=== PATIENT | female | born 1955 | race Caucasian/White ===

== ENCOUNTER 2017-10-29 15:04 | Emergency (ER) | payer MEDICAID ==
[~2017-10-29] VITALS: Ht 162.6 cm; Wt 55.9 kg
[~2017-10-29 15:04] MED LIST: FLUO20CA39 PO; HYDR-565 PO
[2017-10-29] MEDS ORDERED: ipratropium/albuterol 3ml nebule NEB ONE (16:00)
[2017-10-29 16:18] LABS: MEAN PLATELET VOLUME 9.2 FL (7.4-10.4); WHITE BLOOD COUNT 7.8 X10'3 (4.5-11.0)
[2017-10-29 16:20] LABS: BASOPHILS % (AUTO) 0.5 % (0-1); EOSINOPHILS % (AUTO) 0.5 % (0-6); HEMATOCRIT 37.1 % (35.0-45.0); HEMOGLOBIN 12.9 g/dl (12.0-16.0); LYMPHOCYTES # (AUTO) 2.1 X10'3 (1.1-4.8); LYMPHOCYTES % (AUTO) 27.4 % (21-51); MEAN CORPUSCULAR HEMOGLOBIN 30.7 PG (27.0-31.0); MEAN CORPUSCULAR HGB CONC 34.8 % (33.0-36.5); MONOCYTES # (AUTO) 0.5 X10'3 (0-0.9); NEUTROPHILS # (AUTO) 5.2 X10'3 (1.8-7.7); NEUTROPHILS % (AUTO) 64.6 % (42-75); PLATELET COUNT 312 X10'3 (140-440); RED BLOOD COUNT 4.21 X10'6 (4.20-5.60); RED CELL DISTRIBUTION WIDTH 12.9 % (11.5-14.5)
[2017-10-29 16:22] LABS: ALANINE AMINOTRANSFERASE 31 U/L (12-78); ALBUMIN 4.3 G/DL (3.4-5.0); ALBUMIN/GLOBULIN RATIO 1.1 (1.1-1.5); ALKALINE PHOSPHATASE 90 IU/L (46-116); ANION GAP 11 (8-16); ASPARTATE AMINO TRANSFERASE 23 U/L (10-37); BILIRUBIN,TOTAL 0.3 MG/DL (0.1-1.0); BLOOD UREA NITROGEN 13 MG/DL (7-18); BUN/CREATININE RATIO 23.2 (6.6-38.0); CALCIUM 9.7 MG/DL (8.5-10.1); CHLORIDE 103 MMOL/L (99-107); CREATININE 0.56 MG/DL (0.40-0.90); GLUCOSE 93 MG/DL (70-104); SODIUM 140 MMOL/L (135-145); TOTAL CARBON DIOXIDE 26.4 MMOL/L (24-32); TOTAL PROTEIN 8.1 G/DL (6.4-8.2); eGFR > 90 ML/MIN
[2017-10-29] MEDS ORDERED: DOXY-200 PO (17:01)
[2017-10-29] MEDS ORDERED: METH4TAB81 PO (17:01)
[2017-10-29] MEDS ORDERED: BENZ-16 PO (17:01)
[2017-10-29] MEDS ORDERED: ALBU18HF2 INH (17:01)
[2017-10-29 17:16] VITALS: BP 124/74
== END 2017-10-29 17:18 | disposition home or self-care (01) ==
LOC: ER 15:05
DX: J44.1 Chronic obstructive pulmonary disease with (acute) exacerbation (principal); F17.200 Nicotine dependence, unspecified, uncomplicated; M19.90 Unspecified osteoarthritis, unspecified site; M10.9 Gout, unspecified; Z88.2 Allergy status to sulfonamides; Z79.899 Other long term (current) drug therapy
CPT/HCPCS: 36415; 71046; 80053; 83605; 85025; 87040; 94640; 94760; 99285

== ENCOUNTER 2018-01-05 21:17 | Inpatient (IN) | payer MEDICAID ==
[~2018-01-05] VITALS: Ht 162.6 cm; Wt 58.1 kg
[~2018-01-05 21:17] MED LIST changes: +ALBU18HF2 INH; +METH4TAB81 PO
[2018-01-05 21:46] LABS: BASOPHILS % (AUTO) 0.4 % (0-1); EOSINOPHILS # (AUTO) 0.1 X10'3 (0-0.9); EOSINOPHILS % (AUTO) 0.7 % (0-6); HEMATOCRIT 35.9 % (35.0-45.0); HEMOGLOBIN 12.9 g/dl (12.0-16.0); LYMPHOCYTES # (AUTO) 2.3 X10'3 (1.1-4.8); LYMPHOCYTES % (AUTO) 30.6 % (21-51); MEAN CORPUSCULAR VOLUME 89.8 FL (78-98); MEAN PLATELET VOLUME 8.6 FL (7.4-10.4); MONOCYTES # (AUTO) 0.7 X10'3 (0-0.9); MONOCYTES % (AUTO) 9.2 % (2-12); NEUTROPHILS # (AUTO) 4.4 X10'3 (1.8-7.7); NEUTROPHILS % (AUTO) 59.1 % (42-75); PLATELET COUNT 260 X10'3 (140-440); RED BLOOD COUNT 3.99 X10'6 (4.20-5.60); WHITE BLOOD COUNT 7.5 X10'3 (4.5-11.0)
[2018-01-05 21:59] LABS: INR 0.9 INR; PARTIAL THROMBOPLASTIN TIME 26 SECONDS (22-32); PROTHROMBIN TIME 9.7 SECONDS (9.0-12.0)
[2018-01-05 22:07] LABS: ALBUMIN 3.8 G/DL (3.4-5.0); ALKALINE PHOSPHATASE 78 IU/L (46-116); CALCIUM 8.4 MG/DL (8.5-10.1); CREATININE 0.72 MG/DL (0.40-0.90); SODIUM 146 MMOL/L (135-145); TOTAL CARBON DIOXIDE 28.2 MMOL/L (24-32); eGFR 83 ML/MIN
[2018-01-05 22:27] LABS: MEAN CORPUSCULAR HGB CONC 35.7 % (33.0-36.5); RED CELL DISTRIBUTION WIDTH 15.1 % (11.5-14.5)
[2018-01-05] MEDS ORDERED: nitroGLYCERIN 0.4mg SUBLingual tab SL PRN ×2 (22:30→23:25)
[2018-01-05] MEDS ORDERED: aspirin 325mg tablet PO ONE (22:30)
[2018-01-05 22:33] LABS: ALANINE AMINOTRANSFERASE 25 U/L (12-78); ALBUMIN/GLOBULIN RATIO 1.1 (1.1-1.5); ANION GAP 9 (8-16); ASPARTATE AMINO TRANSFERASE 20 U/L (10-37); BILIRUBIN,TOTAL 0.2 MG/DL (0.1-1.0); BLOOD UREA NITROGEN 13 MG/DL (7-18); BUN/CREATININE RATIO 18.1 (6.6-38.0); CHLORIDE 109 MMOL/L (99-107); GLUCOSE 97 MG/DL (70-104); POTASSIUM 3.6 MMOL/L (3.5-5.1); TOTAL PROTEIN 7.3 G/DL (6.4-8.2)
[2018-01-05] MEDS ORDERED: ipratropium/albuterol 3ml nebule NEB PRN (23:25)
[2018-01-05] MEDS ORDERED: magnesium hydroxide 30ml (MOM) UD suspension PO PRN (23:25)
[2018-01-05] MEDS ORDERED: ondansetron/PF 4mg/2ml inj IV PRN (23:25)
[2018-01-05] MEDS ORDERED: metoprolol tartrate 1mg/ml inj IV PRN (23:25)
[2018-01-05] MEDS ORDERED: potassium Cl 40MEQ/NS 500ml 500 ML IV PRN ×2 (23:25)
[2018-01-05] MEDS ORDERED: acetaminophen 325mg tablet PO PRN (23:25)
[2018-01-05] MEDS ORDERED: magnesium 2GM in 50ml NS 50 ML IV PRN (23:25)
[2018-01-05] MEDS ORDERED: mag hydrox/Alum hydrox/simeth 30ml oral suspension PO PRN (23:25)
[2018-01-05] MEDS ORDERED: potassium Cl 20 mEq SR tablet PO PRN ×2 (23:25)
[2018-01-05] MEDS ORDERED: aminophylline 250mg/10ml inj. IV PRN (23:25)
[2018-01-05] MEDS ORDERED: magnesium Cl slow-release 64mg tablet PO PRN (23:25)
[2018-01-05] MEDS ORDERED: regadenoson 0.4mg/5ml syringe IV ONE (23:25)
[2018-01-05] MEDS ORDERED: albuterol 2.5 MG/3 ML nebule NEB PRN (23:25)
[2018-01-05] MEDS ORDERED: magnesium 4gm in 100ml NS 100 ML IV PRN (23:25)
[2018-01-05] MEDS ORDERED: morphine 2 MG/ML inj. syringe IV PRN (23:40)
[2018-01-05] MEDS: morphine 2 MG/ML inj. syringe IV PRN (23:57)
[2018-01-05] MEDS: temazepam 15mg capsule PO PRN (23:57)
[2018-01-05] MEDS: normal saline 1000ml 1,000 ML IV SCH (23:58)
[2018-01-06] VITALS (8 sets, daily range): BP systolic 114–144; BP diastolic 47–73
[2018-01-06 05:37] LABS: ALANINE AMINOTRANSFERASE 22 U/L (12-78); ALBUMIN 3.1 G/DL (3.4-5.0); ALBUMIN/GLOBULIN RATIO 1.1 (1.1-1.5); ALKALINE PHOSPHATASE 66 IU/L (46-116); ANION GAP 11 (8-16); ASPARTATE AMINO TRANSFERASE 20 U/L (10-37); BILIRUBIN,TOTAL 0.1 MG/DL (0.1-1.0); BLOOD UREA NITROGEN 14 MG/DL (7-18); BUN/CREATININE RATIO 20.9 (6.6-38.0); CALCIUM 8.2 MG/DL (8.5-10.1); CHLORIDE 110 MMOL/L (99-107); CHOL/HDL RATIO 3.3 (0.00-4.99); CHOLESTEROL 194 MG/DL (0-200); CREATININE 0.67 MG/DL (0.40-0.90); GLUCOSE 125 MG/DL (70-104); HDL CHOLESTEROL 59 MG/DL (35-60); LDL CHOLESTEROL 114 MG/DL (50-100); MAGNESIUM 1.8 MG/DL (1.5-2.4); SODIUM 146 MMOL/L (135-145); TOTAL CARBON DIOXIDE 24.8 MMOL/L (24-32); TRIGLYCERIDES 96 MG/DL (20-135); eGFR 90 ML/MIN
[2018-01-06 05:55] LABS: BASOPHILS % (AUTO) 0.4 % (0-1); EOSINOPHILS # (AUTO) 0.1 X10'3 (0-0.9); HEMATOCRIT 30.4 % (35.0-45.0); HEMOGLOBIN 10.6 g/dl (12.0-16.0); LYMPHOCYTES # (AUTO) 2.4 X10'3 (1.1-4.8); MEAN CORPUSCULAR HEMOGLOBIN 31.4 PG (27.0-31.0); MEAN CORPUSCULAR VOLUME 89.6 FL (78-98); MEAN PLATELET VOLUME 8.8 FL (7.4-10.4); MONOCYTES # (AUTO) 0.6 X10'3 (0-0.9); MONOCYTES % (AUTO) 11.3 % (2-12); NEUTROPHILS # (AUTO) 2.5 X10'3 (1.8-7.7); NEUTROPHILS % (AUTO) 44.3 % (42-75); PLATELET COUNT 213 X10'3 (140-440); RED BLOOD COUNT 3.39 X10'6 (4.20-5.60); RED CELL DISTRIBUTION WIDTH 14.8 % (11.5-14.5); WHITE BLOOD COUNT 5.6 X10'3 (4.5-11.0)
[2018-01-06] MEDS: K and/or MAG REPLACEMENT MC SCH (07:19)
[2018-01-06] MEDS: atorvastatin 10mg tablet PO SCH (07:20)
[2018-01-06] MEDS: FLUoxetine 20mg capsule PO SCH (07:20)
[2018-01-06] MEDS: enoxaparin 30mg/0.3ml syringe SQ SCH ×2 (08:42→20:55)
[2018-01-06] MEDS: normal saline 1000ml 1,000 ML IV SCH (08:42)
[2018-01-06] MEDS ORDERED: regadenoson 0.4mg/5ml syringe IV ONE (09:33)
[2018-01-06] MEDS ORDERED: aminophylline inj. 0 ML IV ONE (09:33)
[2018-01-06] MEDS ORDERED: LORazepam 2 mg/ml vial IV ONE (13:20)
[2018-01-06] MEDS: morphine 2 MG/ML inj. syringe IV PRN (18:50)
[2018-01-06] MEDS: temazepam 15mg capsule PO PRN (20:54)
[2018-01-07 02:00] VITALS: BP 119/64
[2018-01-07 05:28] LABS: BASOPHILS % (AUTO) 0.3 % (0-1); EOSINOPHILS # (AUTO) 0.1 X10'3 (0-0.9); EOSINOPHILS % (AUTO) 1.2 % (0-6); HEMATOCRIT 32.5 % (35.0-45.0); HEMOGLOBIN 11.4 g/dl (12.0-16.0); LYMPHOCYTES # (AUTO) 2.5 X10'3 (1.1-4.8); LYMPHOCYTES % (AUTO) 41.8 % (21-51); MEAN CORPUSCULAR HEMOGLOBIN 31.7 PG (27.0-31.0); MEAN CORPUSCULAR HGB CONC 35.2 % (33.0-36.5); MEAN PLATELET VOLUME 8.8 FL (7.4-10.4); MONOCYTES # (AUTO) 0.6 X10'3 (0-0.9); MONOCYTES % (AUTO) 10.6 % (2-12); NEUTROPHILS # (AUTO) 2.7 X10'3 (1.8-7.7); NEUTROPHILS % (AUTO) 46.1 % (42-75); PLATELET COUNT 200 X10'3 (140-440); RED BLOOD COUNT 3.61 X10'6 (4.20-5.60); RED CELL DISTRIBUTION WIDTH 14.9 % (11.5-14.5); WHITE BLOOD COUNT 5.9 X10'3 (4.5-11.0)
[2018-01-07 05:57] LABS: ALBUMIN 3.1 G/DL (3.4-5.0); ANION GAP 7 (8-16); BLOOD UREA NITROGEN 9 MG/DL (7-18); BUN/CREATININE RATIO 14.1 (6.6-38.0); CALCIUM 8.5 MG/DL (8.5-10.1); CHLORIDE 109 MMOL/L (99-107); CREATININE 0.64 MG/DL (0.40-0.90); GLUCOSE 93 MG/DL (70-104); MAGNESIUM 1.9 MG/DL (1.5-2.4); SODIUM 146 MMOL/L (135-145); TOTAL CARBON DIOXIDE 29.6 MMOL/L (24-32); eGFR > 90 ML/MIN
[2018-01-07 06:00] VITALS: BP 119/64
[2018-01-07] MEDS: K and/or MAG REPLACEMENT MC SCH (08:00)
[2018-01-07] MEDS: FLUoxetine 20mg capsule PO SCH (08:41)
[2018-01-07] MEDS: atorvastatin 10mg tablet PO SCH (08:41)
[2018-01-07] MEDS: enoxaparin 30mg/0.3ml syringe SQ SCH (08:41)
[2018-01-07 11:00] VITALS: BP 140/63
[2018-01-07] MEDS: morphine 2 MG/ML inj. syringe IV PRN (11:12)
[2018-01-07 15:00] VITALS: BP 127/59
[2018-01-07] MEDS ORDERED: ATOR20TA66 PO (15:15)
[2018-01-07] MEDS ORDERED: ASPI-1265 PO (15:16)
== END 2018-01-07 17:30 | disposition home or self-care (01) | DRG 47 ==
LOC: ER 21:18 → ED HOLD 23:24 → PCU 3S 01-06 19:13
PROVIDERS: ADMIT Internal Medicine; ATTEND Internal Medicine
PROC: 4A02XM4 Measurement of Cardiac Total Activity, External Approach (ICD-10-PCS; principal; 2018-01-05)
PROC: 3E073KZ Introduction of Other Diagnostic Substance into Coronary Artery, Percutaneous Approach (ICD-10-PCS; 2018-01-05)
DX: G45.9 Transient cerebral ischemic attack, unspecified (principal); G62.9 Polyneuropathy, unspecified; F32.9 Major depressive disorder, single episode, unspecified; R07.9 Chest pain, unspecified; J44.9 Chronic obstructive pulmonary disease, unspecified; M10.9 Gout, unspecified; F17.200 Nicotine dependence, unspecified, uncomplicated; G89.29 Other chronic pain; M19.90 Unspecified osteoarthritis, unspecified site; M54.9 Dorsalgia, unspecified; R26.9 Unspecified abnormalities of gait and mobility; R47.81 Slurred speech; Z83.3 Family history of diabetes mellitus; Z79.899 Other long term (current) drug therapy; Z79.01 Long term (current) use of anticoagulants; Z79.82 Long term (current) use of aspirin; Z82.3 Family history of stroke; Z88.2 Allergy status to sulfonamides
CPT/HCPCS: 36415; 70450; 70551; 71045; 78452; 80048; 80053; 80061; 83735; 84484; 85025; 85610; 85651; 85730; 87070; 92616; 93017; 93306; 93880; 99285; A9500; J0280; J1650; J2060; J2270; J2405; J7030